=== PATIENT | female | born 1970 | race Caucasian/White ===

== ENCOUNTER 2020-04-08 12:30 | Emergency (ER) | payer MEDICAID ==
[2020-04-08] MEDS ORDERED: Sodium Chloride 0.9% 10 ML Syringe FLUSH PRN (14:27)
[2020-04-08] MEDS ORDERED: Lactated Ringers 1,000 ML IV SCH (14:30)
--- NOTE | 2020-04-08 14:30 | EDM.PDOC ---
ED HPI GENERAL MEDICAL PROBLEM - General Chief Complaint: Abdominal Pain Stated Complaint: ABD PAIN/GAS/PAIN IN SHOULDER PAIN Time Seen by Provider: 04/08/20 14:22 Source of Information: Reports: Patient, RN Notes Reviewed History Limitations: Reports: No Limitations - History of Present Illness INITIAL COMMENTS - FREE TEXT/NARRATIVE: 49-year-old female presents emergency department with a complaint of abdominal pain, she states she has had abdominal pain for the last 3 to 4 days it has progressively gotten worse no nausea or vomiting she still passing gas does have history of multiple type surgeries as well as section Right Upper Abdomen Pain Score (Numeric/FACES): 4 - Related Data Allergies Allergy/AdvReac Type Severity Reaction Status Date / Time cephalexin monohydrate Allergy Intermediate Rash Verified 04/08/20 14:28 [From Keflex] Home Meds: Home Meds Lisdexamfetamine [Vyvanse] 20 mg DAILY 03/07/14 [History] Losartan [Cozaar] 100 mg DAILY 03/07/14 [History] SUMAtriptan 100 mg PO ASDIRECTED PRN 03/07/14 [History] Prochlorperazine [Compazine] 5 mg ASDIRECTED PRN 06/05/15 [History] Acetaminophen with Codeine [Acetaminophen-Cod #3] 2 tab PO DAILY 04/08/20 [History] Topiramate 2 tab PO BEDTIME 04/08/20 [History] ondansetron HCL [Ondansetron HCl] 1 tab PO Q6HR PRN 04/08/20 [History] traMADol HCl [Tramadol HCl] 2 tab PO DAILY 04/08/20 [History] Past Medical History Other Genitourinary History: cystectom ulcer on bladder Other BRANCH OFFICER History: c section x 2 Social & Family History - Tobacco Use Smoking Status *Q: Former Smoker ED ROS GENERAL - Review of Systems Review Of Systems: See Below Constitutional: Denies: Fever, Chills HEENT: Reports: No Symptoms Respiratory: Reports: No Symptoms Cardiovascular: Reports: No Symptoms GI/Abdominal: Reports: Abdominal Pain, Flatus. Denies: Nausea, Vomiting : Reports: No Symptoms Musculoskeletal: Reports: No Symptoms ED EXAM, GI/ABD - Physical Exam Exam: See Below Exam Limited By: No Limitations General Appearance: Alert, WD/WN, No Apparent Distress Respiratory/Chest: No Respiratory Distress, Lungs Clear, Normal Breath Sounds, No Accessory Muscle Use, Chest Non-Tender Cardiovascular: Regular Rate, Rhythm, No Murmur GI/Abdominal Exam: Soft, Tender (Right upper quadrant) Course - Vital Signs Last Recorded V/S: Last Vital Signs Temp 94.1 F L 04/08/20 14:23 Pulse 79 04/08/20 16:21 Resp 16 04/08/20 14:23 BP 154/99 H 04/08/20 16:21 Pulse Ox 99 04/08/20 14:23 - Orders/Labs/Meds Orders: Active Orders 24 hr Category Date Time Status Peripheral IV Care [RC] . DIRECTED Care 04/08/20 14:27 Active Iopamidol [Isovue-300 (61%)] Med 04/08/20 14:45 Active 100 ml IV . DIRECTED Lactated Ringers [Ringers, Lactated] 1,000 ml Med 04/08/20 14:30 Active IV ASDIRECTED Sodium Chloride 0.9% [Normal Saline] 74 ml Med 04/08/20 14:45 Active IV ASDIRECTED Sodium Chloride 0.9% [Saline Flush] Med 04/08/20 14:27 Active 10 ml FLUSH ASDIRECTED PRN Peripheral IV Insertion Adult [OM.PC] Urgent Oth 04/08/20 14:27 Ordered Medication Orders Lactated Ringer's (Ringers, Lactated) 1,000 mls @ 999 mls/hr IV ASDIRECTED [facility] Last Admin: 04/08/20 14:49 Dose: 999 mls/hr Documented by: JORGE Sodium Chloride (Normal Saline) 74 mls @ 3 mls/sec IV ASDIRECTED [facility] Last Admin: 04/08/20 15:41 Dose: 3 mls/sec Documented by: LORI Iopamidol (Isovue-300 (61%)) 100 ml IV . DIRECTED [facility] Last Admin: 04/08/20 15:41 Dose: 100 ml Documented by: LORI Sodium Chloride (Saline Flush) 10 ml FLUSH ASDIRECTED PRN PRN Reason: Keep Vein Open Last Admin: 04/08/20 16:04 Dose: 10 ml Documented by: [email or web address] Labs: Laboratory Tests 04/08/20 04/08/20 04/08/20 Range/Units 14:41 14:41 14:41 WBC 6.9 (4.5-11.0) K/uL RBC 4.92 (3.30-5.50) M/uL Hgb 14.5 (12.0-15.0) g/dL Hct 43.4 (36.0-48.0) % MCV 88 (80-98) fL MCH 30 (27-31) pg MCHC 33 (32-36) % Plt Count 365 (150-400) K/uL Neut % (Auto) 59 (36-66) % Lymph % (Auto) 33 (24-44) % [place] % (Auto) 6 (2-6) % Eos % (Auto) 2 (2-4) % Baso % (Auto) 1 (0-1) % Sodium 140 (140-148) mmol/L Potassium 3.5 L (3.6-5.2) mmol/L Chloride 104 (100-108) mmol/L Carbon Dioxide 30 (21-32) mmol/L Anion Gap 9.5 (5.0-14.0) mmol/L BUN 17 D (7-18) mg/dL Creatinine 0.8 (0.6-1.0) mg/dL Est Cr Clr Drug Dosing 78.76 mL/min Estimated GFR (MDRD) > 60 (>60) Glucose 93 (74-106) mg/dL Lactic Acid 0.6 (0.4-2.0) mmol/L Calcium 8.2 L (8.5-10.1) mg/dL Total Bilirubin 0.3 (0.2-1.0) mg/dL AST 22 (15-37) U/L ALT 35 (12-78) U/L Alkaline Phosphatase 88 (46-116) U/L Troponin I < 0.017 (0.000-0.056) ng/mL Total Protein 6.8 (6.4-8.2) g/dL Albumin 3.6 (3.4-5.0) g/dL Globulin 3.2 (2.3-3.5) g/dL Albumin/Globulin Ratio 1.1 L (1.2-2.2) Lipase 66 L (73-393) U/L Urine Color (YELLOW) Urine Appearance (CLEAR) Urine pH (5.0-8.0) Ur Specific [place] (1.008-1.030) Urine Protein (NEGATIVE) mg/dL Urine Glucose (UA) (NEGATIVE) mg/dL Urine Ketones (NEGATIVE) mg/dL Urine Occult Blood (NEGATIVE) Urine Nitrite (NEGATIVE) Urine Bilirubin (NEGATIVE) Urine Urobilinogen (0.2-1.0) EU/dL Ur Leukocyte Esterase (NEGATIVE) Urine RBC (0-5) Urine WBC (0-5) Ur Epithelial Cells Amorphous Sediment Urine Bacteria Urine Mucus 04/08/20 Range/Units 16:36 WBC (4.5-11.0) K/uL RBC (3.30-5.50) M/uL Hgb (12.0-15.0) g/dL Hct (36.0-48.0) % MCV (80-98) fL MCH (27-31) pg MCHC (32-36) % Plt Count (150-400) K/uL Neut % (Auto) (36-66) % Lymph % (Auto) (24-44) % [place] % (Auto) (2-6) % Eos % (Auto) (2-4) % Baso % (Auto) (0-1) % Sodium (140-148) mmol/L Potassium (3.6-5.2) mmol/L Chloride (100-108) mmol/L Carbon Dioxide (21-32) mmol/L Anion Gap (5.0-14.0) mmol/L BUN (7-18) mg/dL Creatinine (0.6-1.0) mg/dL Est Cr Clr Drug Dosing mL/min Estimated GFR (MDRD) (>60) Glucose (74-106) mg/dL Lactic Acid (0.4-2.0) mmol/L Calcium (8.5-10.1) mg/dL Total Bilirubin (0.2-1.0) mg/dL AST (15-37) U/L ALT (12-78) U/L Alkaline Phosphatase (46-116) U/L Troponin I (0.000-0.056) ng/mL Total Protein (6.4-8.2) g/dL Albumin (3.4-5.0) g/dL Globulin (2.3-3.5) g/dL Albumin/Globulin Ratio (1.2-2.2) Lipase (73-393) U/L Urine Color Yellow (YELLOW) Urine Appearance Clear (CLEAR) Urine pH 7.0 (5.0-8.0) Ur Specific [place] 1.015 (1.008-1.030) Urine Protein Negative (NEGATIVE) mg/dL Urine Glucose (UA) Negative (NEGATIVE) mg/dL Urine Ketones Negative (NEGATIVE) mg/dL Urine Occult Blood Negative (NEGATIVE) Urine Nitrite Negative (NEGATIVE) Urine Bilirubin Negative (NEGATIVE) Urine Urobilinogen 0.2 (0.2-1.0) EU/dL Ur Leukocyte Esterase Negative (NEGATIVE) Urine RBC Not seen (0-5) Urine WBC Not seen (0-5) Ur Epithelial Cells Few Amorphous Sediment Many Urine Bacteria Moderate Urine Mucus Not seen Meds: Medications Generic Name Dose Route Start Last Admin Trade Name Freq PRN Reason Stop Dose Admin Lactated Ringer's 1,000 mls @ 999 mls/hr 04/08/20 14:30 04/08/20 14:49 Ringers, Lactated IV 999 mls/hr ASDIRECTED ROSANNE Administration Sodium Chloride 74 mls @ 3 mls/sec 04/08/20 14:45 04/08/20 15:41 Normal Saline IV 3 mls/sec ASDIRECTED ROSANNE Administration Iopamidol 100 ml 04/08/20 14:45 04/08/20 15:41 Isovue-300 (61%) IV 100 ml . DIRECTED ROSANNE Administration Sodium Chloride 10 ml 04/08/20 14:27 04/08/20 16:04 Saline Flush FLUSH 10 ml ASDIRECTED PRN Administration Keep Vein Open Discontinued Medications Generic Name Dose Route Start Last Admin Trade Name Freq PRN Reason Stop Dose Admin Sodium Chloride 10 ml 04/08/20 14:31 04/08/20 15:40 Saline Flush FLUSH 04/08/20 14:32 10 ml ONETIME ONE Administration Departure - Departure Time of Disposition: 17:02 Disposition: Home, Self-Care 01 Condition: Fair Clinical Impression: Abdominal pain Qualifiers: Abdominal location: right lower quadrant Qualified Code(s): R10.31 - Right lower quadrant pain - Discharge Information Instructions: Abdominal Pain, Adult, [id number] Referrals: Twin Novak MD [Primary Care Provider] - Forms: ED Department Discharge Additional Instructions: Continue to use your pain medication at home, please follow-up with your primary care next week for further evaluation, recommend doing a food journal to help understand the etiology of your pain Sepsis Event Note (ED) - Evaluation Sepsis Screening Result: No Definite Risk - Focused Exam Vital Signs: Vital Signs Temp Pulse Resp BP Pulse Ox 04/08/20 16:21 79 154/99 H 04/08/20 14:50 72 156/111 H 04/08/20 14:23 94.1 F L 71 16 171/112 H 99 - My Orders Last 24 Hours: My Active Orders 04/08/20 14:27 Peripheral IV Care [RC] . DIRECTED Sodium Chloride 0.9% [Saline Flush] 10 ml FLUSH ASDIRECTED PRN Peripheral IV Insertion Adult [OM.PC] Urgent 04/08/20 14:30 Lactated Ringers [Ringers, Lactated] 1,000 ml IV ASDIRECTED 04/08/20 14:45 Iopamidol [Isovue-300 (61%)] 100 ml IV . DIRECTED Sodium Chloride 0.9% [Normal Saline] 74 ml IV ASDIRECTED - Assessment/Plan Last 24 Hours: My Active Orders 04/08/20 14:27 Peripheral IV Care [RC] . DIRECTED Sodium Chloride 0.9% [Saline Flush] 10 ml FLUSH ASDIRECTED PRN Peripheral IV Insertion Adult [OM.PC] Urgent 04/08/20 14:30 Lactated Ringers [Ringers, Lactated] 1,000 ml IV ASDIRECTED 04/08/20 14:45 Iopamidol [Isovue-300 (61%)] 100 ml IV . DIRECTED Sodium Chloride 0.9% [Normal Saline] 74 ml IV ASDIRECTED Plan: Assessment Acuity = acute Site and laterality = right upper quadrant pain Etiology = suspicious for gallbladder disease Manifestations = none Location of injury = Home Lab values = CBC, CMP, troponin, urinalysis all within normal limits lipase is normal CT scan does show a 4 cm dilated gallbladder with dilated ducts however no obvious cholecystitis Plan I did review lab work CT scan results with her I discussed options including an ultrasound while in the emergency department or following up with her primary care she elected to follow-up with her primary care and continued work-up as an outpatient she will contact her primary care next week This note was dictated using [employer] voice recognition software please call with any questions on syntax or grammar.
[2020-04-08] MEDS ORDERED: Sodium Chloride 0.9% 10 ML Syringe FLUSH ONE (14:31)
[2020-04-08] MEDS ORDERED: Iopamidol 612 MG/ML 100 ML Bottle IV SCH (14:45)
--- NOTE | 2020-04-08 16:32 | CRLCT ---
HISTORY: Right upper quadrant abdominal pain. TECHNIQUE: Intravenous contrast enhanced CT of the abdomen and pelvis. 100 mL of Isovue-300 intravenous contrast administered. COMPARISON: No prior. FINDINGS: The superior most aspect of the dome of liver is excluded from the field of view. There is no abnormality within the included portions of the liver. Gallbladder measures under 4 cm in diameter. There is mild dilatation of the extrahepatic bile duct. No significant intrahepatic biliary ductal dilatation. No pancreatic ductal dilatation. No pancreatic mass. Spleen size within normal limits. Adrenal glands are normal. - On the right, there is a 2 mm intrarenal calculus. There is no ureteral calculus or significant hydronephrosis. Urinary bladder does not appear excessively distended. - No small bowel obstruction. No appendicitis. No diverticulitis. - No abdominal aortic aneurysm. Mesenteric and renal arterial vasculature appears patent. - Tiny fat containing umbilical hernia. - Minor atelectasis within the lung bases. - Degenerative changes of the spine. Mild degenerative changes of the hips. No acute fractures. IMPRESSION: 1. Mild nonspecific dilatation of the extrahepatic bile duct. No intrahepatic biliary ductal dilatation or pancreatic ductal dilatation. Gallbladder measures under 4 cm diameter. 2. Non-obstructive intrarenal calculus right kidney. No hydronephrosis or ureteral calculus. 3. No bowel obstruction, appendicitis or diverticulitis. Dictated by Gustavo Solares MD @ 04/08/2020 4:30:13 PM Please note that all CT scans at this facility use dose modulation, iterative reconstruction, and/or weight-based dosing when appropriate to reduce radiation dose to as low as reasonably achievable. Dictated by: Gustavo Solares MD @ 04/08/2020 16:30:18 (Electronically Signed)
[2020-04-08 16:49] VITALS: BP 154/99; PULSE 79
== END 2020-04-08 17:18 | disposition home or self-care (01) ==
LOC: JP.ED 12:30
DX: R10.11 Right upper quadrant pain (principal); Z88.1 Allergy status to other antibiotic agents; Z79.899 Other long term (current) drug therapy; Z87.891 Personal history of nicotine dependence
CPT/HCPCS: 36415; 74177; 80053; 81001; 83605; 83690; 84484; 85025; 99284; J7050; J7120; Q9967

== ENCOUNTER 2020-06-03 08:07 | Emergency (ER) | payer MEDICAID ==
[2020-06-03 08:27] VITALS: BP 130/93; PULSE 74
--- NOTE | 2020-06-03 09:09 | EDM.PDOC ---
ED HPI GENERAL MEDICAL PROBLEM - General Chief Complaint: Back Pain or Injury Stated Complaint: PAIN R SIDE Time Seen by Provider: 06/03/20 08:29 Source of Information: Reports: Patient, Old Records, RN Notes Reviewed History Limitations: Reports: No Limitations - History of Present Illness INITIAL COMMENTS - FREE TEXT/NARRATIVE: 49-year-old female presents to the emergency department today with complaint of right flank upper quadrant pain with radiations up into the shoulder as well as radiations down to the right foot. She was initially evaluated for this pain back first part of April underwent blood work CT scan at that time CT scan showed 2 mm nonobstructing stone on the right side no hydronephrosis also gallbladder was at 4 cm in dilation but no ductal dilation. She has followed up with her primary care couple times has received referrals to podiatry as well as referral to urology where she underwent RENAL SCINTIGRAPHY which showed normal left kidney however right kidney is suspicious for partial obstruction in flow. Was also reevaluated in the emergency department end of April no etiology has been revealed for her pain thus far. She states the pain comes and goes can get quite intense at times she denies any relationship to food no nausea or vomiting. - Related Data Allergies Allergy/AdvReac Type Severity Reaction Status Date / Time cephalexin monohydrate Allergy Intermediate Rash Verified 06/03/20 08:13 [From Keflex] Home Meds: Home Meds Lisdexamfetamine [Vyvanse] 20 mg DAILY 03/07/14 [History] Losartan [Cozaar] 100 mg DAILY 03/07/14 [History] SUMAtriptan 100 mg PO ASDIRECTED PRN 03/07/14 [History] Prochlorperazine [Compazine] 5 mg ASDIRECTED PRN 06/05/15 [History] Acetaminophen with Codeine [Acetaminophen-Cod #3] 2 tab PO DAILY 04/08/20 [History] Topiramate 2 tab PO BEDTIME 04/08/20 [History] traMADol HCl [Tramadol HCl] 2 tab PO DAILY 04/08/20 [History] Amphetamine/Dextroamphetamine [Adderall] 20 mg PO DAILY 06/03/20 [History] oxyCODONE 5 mg PO Q6HR PRN 06/03/20 [History] Past Medical History Genitourinary History: Reports: Other (See Below) Other Genitourinary History: cystectom ulcer on bladder 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 Denies: Nausea, Vomiting : Reports: Flank Pain Musculoskeletal: Reports: Foot Pain Skin: Reports: No Symptoms Neurological: Reports: No Symptoms ED EXAM, GI/ABD - Physical Exam Exam: See Below Exam Limited By: No Limitations General Appearance: Alert, WD/WN, No Apparent Distress Respiratory/Chest: No Respiratory Distress GI/Abdominal Exam: Soft, Tender (Tender right upper quadrant right flank area) Back Exam: Normal Inspection, Full Range of Motion. No: CVA Tenderness (R), CVA Tenderness (L) Course - Vital Signs Last Recorded V/S: Last Vital Signs Temp 96.6 F L 06/03/20 08:26 Pulse 74 06/03/20 08:26 Resp 14 06/03/20 08:26 BP 130/93 H 06/03/20 08:26 Pulse Ox 98 06/03/20 08:26 - Orders/Labs/Meds Orders: Active Orders 24 hr Category Date Time Status UA W/MICROSCOPIC [URIN] Urgent Lab 06/03/20 10:49 Results Labs: Laboratory Tests 06/03/20 06/03/20 06/03/20 Range/Units 09:19 09:19 10:49 WBC 5.2 (4.5-11.0) K/uL RBC 4.63 (3.30-5.50) M/uL Hgb 13.5 (12.0-15.0) g/dL Hct 40.3 (36.0-48.0) % MCV 87 (80-98) fL MCH 29 (27-31) pg MCHC 34 (32-36) % Plt Count 348 (150-400) K/uL Neut % (Auto) 61 (36-66) % Lymph % (Auto) 30 (24-44) % [place] % (Auto) 7 H (2-6) % Eos % (Auto) 1 L (2-4) % Baso % (Auto) 1 (0-1) % Sodium 138 L (140-148) mmol/L Potassium 3.3 L (3.6-5.2) mmol/L Chloride 102 (100-108) mmol/L Carbon Dioxide 26 (21-32) mmol/L Anion Gap 13.3 (5.0-14.0) mmol/L BUN 16 (7-18) mg/dL Creatinine 0.8 (0.6-1.0) mg/dL Est Cr Clr Drug Dosing 72.65 mL/min Estimated GFR (MDRD) > 60 (>60) Glucose 98 (74-106) mg/dL Calcium 8.5 (8.5-10.1) mg/dL Total Bilirubin 0.3 (0.2-1.0) mg/dL AST 18 (15-37) U/L ALT 23 (12-78) U/L Alkaline Phosphatase 63 (46-116) U/L Total Protein 6.6 (6.4-8.2) g/dL Albumin 3.4 (3.4-5.0) g/dL Globulin 3.2 (2.3-3.5) g/dL Albumin/Globulin Ratio 1.1 L (1.2-2.2) Urine Color Yellow (YELLOW) Urine Appearance Slightly cloudy A (CLEAR) Urine pH 7.0 (5.0-8.0) Ur Specific [place] 1.025 (1.008-1.030) Urine Protein Negative (NEGATIVE) mg/dL Urine Glucose (UA) Negative (NEGATIVE) mg/dL Urine Ketones Negative (NEGATIVE) mg/dL Urine Occult Blood Negative (NEGATIVE) Urine Nitrite Negative (NEGATIVE) Urine Bilirubin Negative (NEGATIVE) Urine Urobilinogen 0.2 (0.2-1.0) EU/dL Ur Leukocyte Esterase Negative (NEGATIVE) Urine RBC Not seen (0-5) Urine WBC 0-5 (0-5) Ur Epithelial Cells Few Amorphous Sediment Moderate Urine Bacteria Few Urine Mucus Few Urine Opiates Screen (NEGATIVE) Ur Oxycodone Screen (NEGATIVE) Urine Methadone Screen (NEGATIVE) Ur Propoxyphene Screen (NEGATIVE) Ur Barbiturates Screen (NEGATIVE) Ur Tricyclics Screen (NEGATIVE) Ur Phencyclidine Scrn (NEGATIVE) Ur Amphetamine Screen (NEGATIVE) U Methamphetamines Scrn (NEGATIVE) Urine MDMA Screen (NEGATIVE) U Benzodiazepines Scrn (NEGATIVE) U Cocaine Metab Screen (NEGATIVE) U Marijuana (THC) Screen (NEGATIVE) 06/03/20 Range/Units 10:49 WBC (4.5-11.0) K/uL RBC (3.30-5.50) M/uL Hgb (12.0-15.0) g/dL Hct (36.0-48.0) % MCV (80-98) fL MCH (27-31) pg MCHC (32-36) % Plt Count (150-400) K/uL Neut % (Auto) (36-66) % Lymph % (Auto) (24-44) % [place] % (Auto) (2-6) % Eos % (Auto) (2-4) % Baso % (Auto) (0-1) % Sodium (140-148) mmol/L Potassium (3.6-5.2) mmol/L Chloride (100-108) mmol/L Carbon Dioxide (21-32) mmol/L Anion Gap (5.0-14.0) mmol/L BUN (7-18) mg/dL Creatinine (0.6-1.0) mg/dL Est Cr Clr Drug Dosing mL/min Estimated GFR (MDRD) (>60) Glucose (74-106) mg/dL Calcium (8.5-10.1) mg/dL Total Bilirubin (0.2-1.0) mg/dL AST (15-37) U/L ALT (12-78) U/L Alkaline Phosphatase (46-116) U/L Total Protein (6.4-8.2) g/dL Albumin (3.4-5.0) g/dL Globulin (2.3-3.5) g/dL Albumin/Globulin Ratio (1.2-2.2) Urine Color (YELLOW) Urine Appearance (CLEAR) Urine pH (5.0-8.0) Ur Specific [place] (1.008-1.030) Urine Protein (NEGATIVE) mg/dL Urine Glucose (UA) (NEGATIVE) mg/dL Urine Ketones (NEGATIVE) mg/dL Urine Occult Blood (NEGATIVE) Urine Nitrite (NEGATIVE) Urine Bilirubin (NEGATIVE) Urine Urobilinogen (0.2-1.0) EU/dL Ur Leukocyte Esterase (NEGATIVE) Urine RBC (0-5) Urine WBC (0-5) Ur Epithelial Cells Amorphous Sediment Urine Bacteria Urine Mucus Urine Opiates Screen Presumptive positive H (NEGATIVE) Ur Oxycodone Screen Presumptive positive H (NEGATIVE) Urine Methadone Screen Negative (NEGATIVE) Ur Propoxyphene Screen Negative (NEGATIVE) Ur Barbiturates Screen Negative (NEGATIVE) Ur Tricyclics Screen Negative (NEGATIVE) Ur Phencyclidine Scrn Negative (NEGATIVE) Ur Amphetamine Screen Presumptive positive H (NEGATIVE) U Methamphetamines Scrn Negative (NEGATIVE) Urine MDMA Screen Negative (NEGATIVE) U Benzodiazepines Scrn Negative (NEGATIVE) U Cocaine Metab Screen Negative (NEGATIVE) U Marijuana (THC) Screen Negative (NEGATIVE) Meds: Medications Discontinued Medications Generic Name Dose Route Start Last Admin Trade Name Freq PRN Reason Stop Dose Admin Ketorolac Tromethamine 60 mg 06/03/20 10:30 06/03/20 10:35 Toradol IM 06/03/20 10:31 60 mg ONETIME ONE Administration Departure - Departure Time of Disposition: 10:59 Disposition: Home, Self-Care 01 Condition: Fair Clinical Impression: Right upper quadrant abdominal pain - Discharge Information Instructions: Abdominal Pain, Adult, [id number] Referrals: Twin Novak MD [Primary Care Provider] - Forms: ED Department Discharge Additional Instructions: Please report for your HIDA scan and then follow-up with Dr. Paredes in clinic for an appointment to review the results and further evaluation this information will also be provided with your primary care provider Sepsis Event Note (ED) - Evaluation Sepsis Screening Result: No Definite Risk - Focused Exam Vital Signs: Vital Signs Temp Pulse Resp BP Pulse Ox 06/03/20 08:26 96.6 F L 74 14 130/93 H 98 - My Orders Last 24 Hours: My Active Orders 06/03/20 10:49 UA W/MICROSCOPIC [URIN] Urgent - Assessment/Plan Last 24 Hours: My Active Orders 06/03/20 10:49 UA W/MICROSCOPIC [URIN] Urgent Plan: Assessment Acuity = acute Site and laterality = right upper quadrant pain Etiology = unknown suspicious for gallbladder disease Manifestations = none Location of injury = Home Lab values = CBC, CMP, urinalysis unremarkable urine drug screen positive for opiates and amphetamine which are her prescribed medications, ultrasound does show dilated gallbladder duct at 7 mm Plan Call discussed case Dr. Paredes at 1030 recommended HIDA scan with follow-up in clinic on Saturday of next week This note was dictated using [employer] voice recognition software please call with any questions on syntax or grammar.
--- NOTE | 2020-06-03 10:25 | US ---
Abdomen Ltd CLINICAL HISTORY: Abdominal pain COMPARISON: CT abdomen 04/08/2020. TECHNIQUE: Real-time images were obtained through the right upper quadrant. FINDINGS: The liver is free of mass or biliary dilatation. There is normal parenchymal echogenicity. The gallbladder has a normal contour. The common bile duct measures 7 mm. The pancreas is partially obscured. The right kidney has a normal contour. The IVC is normal. IMPRESSION: Borderline dilatation common bile duct at 7 mm No stones or stricture identified
[2020-06-03] MEDS ORDERED: Ketorolac 60 MG/2 ML SDV IM ONE (10:30)
== END 2020-06-03 11:37 | disposition home or self-care (01) ==
LOC: JP.ED 08:07
DX: R10.11 Right upper quadrant pain (principal); F17.210 Nicotine dependence, cigarettes, uncomplicated; Z88.1 Allergy status to other antibiotic agents; Z79.899 Other long term (current) drug therapy
CPT/HCPCS: 36415; 76705; 80053; 80305; 81001; 85025; 96372; 99284; J1885; 99283